=== PATIENT | male | born 1975 | race American Indian/Alaskan Native ===

== ENCOUNTER 2016-12-07 20:55 | Emergency (ER) | payer SELFPAY ==
[2016-12-07 21:10] VITALS: BP 130/90; PULSE 71; RESP 18; TEMP 98.2
[2016-12-07] MEDS ORDERED: DIPH,PERTUS(ACELL)TETVAC-LF 0.5 ML VIAL IM ONE (21:15)
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
== END 2016-12-07 21:55 | disposition home or self-care (01) ==
LOC: EC 20:55
DX: S61.210A Laceration without foreign body of right index finger without damage to nail, initial encounter (principal); F17.200 Nicotine dependence, unspecified, uncomplicated; Z23 Encounter for immunization; Z88.8 Allergy status to other drugs, medicaments and biological substances; Z91.030 Bee allergy status; W45.8XXA Other foreign body or object entering through skin, initial encounter; Y99.0 Civilian activity done for income or pay
CPT/HCPCS: 12001; 90471; 90715; 99282

== ENCOUNTER → 2020-12-01 | Outpatient (CLI) | payer BC ==
--- NOTE | 2020-12-01 14:07 | XR ---
EXAMINATION TYPE: XR ankle complete LT DATE OF EXAM: 12/01/2020 COMPARISON: NONE HISTORY: 44-year-old male R52, pain TECHNIQUE: 3 views FINDINGS: Ankle mortise is congruent with preservation of the distal tibiofibular overlap. Subtalar joint is al igned. Talar dome is intact. Subtle delineation to the Achilles tendon. No acute fracture, subluxatio n, or dislocation. IMPRESSION: No acute osseous abnormality seen.
== END | disposition home or self-care (01) ==
LOC: RADXRMAIN 13:01
PROVIDERS: ATTEND Family Medicine
DX: M25.572 Pain in left ankle and joints of left foot (principal)